=== PATIENT | female | born 1970 | race Caucasian/White ===

== ENCOUNTER 2017-01-29 03:30 | Emergency (ER) | payer MEDICAID ==
[2017-01-29 03:54] VITALS: BP 127/85
== END 2017-01-29 03:54 | disposition home or self-care (01) ==
LOC: ED 03:30
DX: J02.8 Acute pharyngitis due to other specified organisms (principal); Z79.899 Other long term (current) drug therapy

== ENCOUNTER 2018-03-08 12:24 | Emergency (ER) | payer MEDICAID ==
[~2018-03-08] VITALS: Ht 149.9 cm; Wt 72.3 kg
[2018-03-08 12:29] VITALS: Ht 149.9 cm; Wt 72.3 kg
[2018-03-08 14:01] LABS: BASOPHIL % 0.6 % (0-2); PLATELET COUNT 234 x10^3mcL (130-400); RED CELL DISTRIBUTION WIDTH 14.2 % (11.5-14.5)
[2018-03-08 14:07] LABS: CALCIUM 8.6 mg/dL (8.5-10.1); CARBON DIOXIDE 27.9 mmol/L (21-32); CHLORIDE SERUM 104 mmol/L (98-107); CREATININE SERUM 0.7 mg/dL (0.6-1.0); GFR1 > 60 mL/min; GLUCOSE SERUM 84 mg/dL (74-106); POTASSIUM SERUM 4.1 mmol/L (3.5-5.1); SODIUM SERUM 140 mmol/L (136-145)
[2018-03-08 14:12] LABS: ALKALINE PHOSPHATASE 81 U/L (46-116); ALT/SGPT 23 U/L (14-59); AST/SGOT 28 U/L (15-37); BILIRUBIN TOTAL 0.55 mg/dL (0.20-1.00); TOTAL PROTEIN, SERUM 7.3 g/dL (6.4-8.2)
[2018-03-08 18:31] VITALS: BP 110/74
== END 2018-03-08 18:31 | disposition home or self-care (01) ==
LOC: ED 12:24
PROVIDERS: Emergency Medicine
DX: N83.201 Unspecified ovarian cyst, right side (principal)
CPT/HCPCS: J1885; J3010

== ENCOUNTER 2019-05-28 22:52 | Emergency (ER) | payer SELFPAY ==
[~2019-05-28] VITALS: Ht 149.9 cm; Wt 72.6 kg
[2019-05-28 22:54] VITALS: Ht 149.9 cm; Wt 72.6 kg
[2019-05-28 23:47] LABS: BASOPHIL % 1.2 % (0-2); PLATELET COUNT 249 x10^3mcL (130-400); RED CELL DISTRIBUTION WIDTH 13.9 % (11.5-14.5)
[2019-05-28 23:55] LABS: CALCIUM 8.6 mg/dL (8.5-10.1); CARBON DIOXIDE 27.8 mmol/L (21-32); CHLORIDE SERUM 106 mmol/L (98-107); GFR1 > 60 mL/min; GLUCOSE SERUM 93 mg/dL (74-106); POTASSIUM SERUM 4.2 mmol/L (3.5-5.1); SODIUM SERUM 143 mmol/L (136-145)
[2019-05-29] LABS: ALBUMIN 3.9 g/dL (3.4-5.0); ALKALINE PHOSPHATASE 84 U/L (46-116); ALT/SGPT 59 U/L (14-59); AST/SGOT 36 U/L (15-37); BILIRUBIN TOTAL 0.41 mg/dL (0.20-1.00); TOTAL PROTEIN, SERUM 7.4 g/dL (6.4-8.2)
[2019-05-29 01:00] LABS: T3 TOTAL 1.29 ng/mL
[2019-05-29 01:10] LABS: FREE T4 1.04 ng/dL (0.76-1.46); FREE THYROXINE INDEX 2.6 ug/dL (1.4-4.5); T4(THYROXINE) 8.5 ug/dL (4.7-13.3)
[2019-05-29 04:46] VITALS: BP 119/83
== END 2019-05-29 04:46 | disposition home or self-care (01) ==
LOC: ED 22:52
PROVIDERS: Emergency Medicine
DX: J01.90 Acute sinusitis, unspecified (principal); H92.03 Otalgia, bilateral; M79.10 Myalgia, unspecified site; H53.9 Unspecified visual disturbance; R20.2 Paresthesia of skin
CPT/HCPCS: 36415; 84439; J1885; Q0092

== ENCOUNTER 2020-11-30 17:28 | Emergency (ER) | payer MEDICAID, SELFPAY ==
[~2020-11-30] VITALS: Ht 149.9 cm; Wt 70.8 kg
[2020-11-30 17:36] VITALS: Ht 149.9 cm; Wt 70.8 kg
[2020-11-30 18:31] LABS: BASOPHIL % 3.3 % (0.2-1.3); PLATELET COUNT 275 x10^3mcL (179-408); RED CELL DISTRIBUTION WIDTH 13.4 % (12.3-17.7)
[2020-11-30 18:43] LABS: CALCIUM 8.8 mg/dL (8.5-10.1); CARBON DIOXIDE 25.1 mmol/L (21-32); CHLORIDE SERUM 101 mmol/L (98-107); GFR1 > 60 mL/min; GLUCOSE SERUM 82 mg/dL (74-106); POTASSIUM SERUM 4.4 mmol/L (3.5-5.1); SODIUM SERUM 134 mmol/L (136-145)
[2020-11-30 18:47] LABS: ALKALINE PHOSPHATASE 77 U/L (46-116); ALT/SGPT 32 U/L (14-59); AMYLASE 57 U/L (25-115); AST/SGOT 21 U/L (15-37); BILIRUBIN TOTAL 0.33 mg/dL (0.20-1.00); LIPASE 135 IU/L (73-393); TOTAL PROTEIN, SERUM 7.5 g/dL (6.4-8.2)
[2020-11-30 19:21] LABS: microscopic required? NO
[2020-11-30 19:46] LABS: urine erythrocyte NEGATIVE (NEGATIVE)
[2020-11-30 23:45] VITALS: BP 128/91
== END 2020-11-30 23:45 | disposition home or self-care (01) ==
LOC: ED 17:28
PROVIDERS: Emergency Medicine
DX: R50.9 Fever, unspecified (principal); M79.10 Myalgia, unspecified site; Z20.828 Contact with and (suspected) exposure to other viral communicable diseases
CPT/HCPCS: J1885; U0003

== ENCOUNTER 2021-01-07 02:16 | Emergency (ER) | payer MEDICAID ==
[~2021-01-07] VITALS: Ht 149.9 cm; Wt 70.8 kg
[2021-01-07 02:32] VITALS: Ht 149.9 cm; Wt 70.8 kg
[2021-01-07 06:07] VITALS: BP 132/90
== END 2021-01-07 09:09 | disposition home or self-care (01) ==
LOC: ED 02:16
DX: F20.0 Paranoid schizophrenia (principal)
CPT/HCPCS: G0480; U0003